=== PATIENT | female | born 1960 | race African-American/Black ===

== ENCOUNTER 2016-12-17 10:39 | Emergency (ER) | payer MEDICARE ==
[~2016-12-17] VITALS: Ht 154.9 cm; Wt 110.0 kg
[2016-12-17 10:40] VITALS: BP 147/92; PULSE 66; RESP 18; TEMP 98.6; O2SAT 97
[2016-12-17] MEDS ORDERED: LISI40TA PO (11:08)
[2016-12-17] MEDS ORDERED: AMLO10TA2 PO (11:08)
[2016-12-17] MEDS ORDERED: METO25TA3 PO (11:08)
--- NOTE | 2016-12-17 11:33 | PD ---
HPI Chief Complaint: Musculoskeletal Complaint Time Seen by Provider: 11:33 Travel History International Travel<30 days: No Contact w/Intl Traveler<30days: No Traveled to known affect area: No History of Present Illness HPI 56-year-old female presents to the emergency Department with complaint of right knee pain after hitting her knee on a door today. Denies paresthesias, loss of sensation to the affected extremity. Reports decreased range of motion. Has been ambulatory on the affected extremity. Took ibuprofen approximately 8 AM this morning for pain with some relief. Ice pack applied and the year. Has no other medical complaints. No known allergies. No other modifying factors or associated symptoms. PFSH Past Medical History Cardiovascular Problems: Yes (htn) ?: Not Past Surgical History Hysterectomy: Yes Social History Tobacco Use: No Allergies-Medications (Allergen,Severity, Reaction): Coded Allergies: No Known Allergies (Unverified , 12/17/16) Reported Meds & Prescriptions Reported Meds & Active Scripts Active Ibuprofen 800 Mg Tab 800 Mg PO Q6HR PRN Reported Metoprolol Tartrate 25 Mg Tab 25 Mg PO DAILY Amlodipine (Amlodipine Besylate) 10 Mg Tab 10 Mg PO DAILY Lisinopril 40 Mg Tab 40 Mg PO DAILY Review of Systems Except as stated in HPI: all other systems reviewed are Neg Physical Exam Narrative GENERAL: Well-nourished, well-developed female patient, in no acute distress SKIN: Warm and dry. HEAD: Atraumatic. Normocephalic. EYES: Pupils equal and round. No scleral icterus. No injection or drainage. ENT: Mucosa pink and moist. Airway patent. NECK: Trachea midline. CARDIOVASCULAR: Regular rate. RESPIRATORY: No accessory muscle use. GASTROINTESTINAL: Obese. MUSCULOSKELETAL: Right anterior knee is mildly edematous without erythema, ecchymosis; full range of motion with flexion and 90; joint stable with negative drawer test; tenderness on palpation to the anterior aspect over the patella; no obvious deformity. Right lower extremity supple and nontense with 2 + pedal pulses and sensory intact and without erythema or edema. NEUROLOGICAL: Awake and alert. Oriented 3. No obvious cranial nerve deficits. Motor grossly within normal limits. Normal speech. PSYCHIATRIC: Appropriate mood and affect; insight and judgment normal. Data Data Last Documented VS Vital Signs Date Time Temp Pulse Resp B/P Pulse Ox O2 Delivery O2 Flow Rate FiO2 5/10/17 10:40 98.6 66 18 147/92 97 Orders Knee, Complete (4vws) (12/17/16 11:33) Splint Or Brace Apply/Monitor (12/17/16 12:29) Crutches (12/17/16 12:29) MDM Medical Decision Making Medical Screen Exam Complete: Yes Emergency Medical Condition: Yes Medical Record Reviewed: Yes Differential Diagnosis Knee contusion, patellar fracture, less likely dislocation Narrative Course 56-year-old female with right knee injury. Patient took ibuprofen prior to arrival. Right knee x-ray ordered. 1228: Right knee x-ray concludes: Last 24 hours Impressions Knee X-Ray 12/17/16 1133 Signed Impressions: Service Date/Time: Saturday, December 17, 2016 11:54 - CONCLUSION: 1. Prominent probable osteochondroma extending off the superior aspect of the patella with a large cartilaginous cap. Malignant degeneration is often associated with the size of the cartilaginous cap. As such, MRI with and without contrast the useful for further characterization of this region. There does appear to be a well-corticated pseudoarticulation in the stalk of the osteochondroma 2. Small , 2.5 cm osteochondromata more medially and inferior in the anterior joint space. 3. 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 No associated fracture Rey Ribeiro MD X-ray findings were discussed with the patient and she was given a copy of the x -ray report and instructed to follow up outpatient for further imaging as suggested per report. Qamar bandage and crutches provided for support. Ibuprofen prescribed for home. Patient verbalizes understanding and agreement with treatment plan. Patient is medically cleared and stable for discharge. Discussed reasons to return to the emergency department. Instructed patient to follow up with primary care provider. Patient agrees with treatment plan. The patients vital signs are stable and the patient is stable for outpatient follow- up and treatment. Patient discharged home, stable and in no acute distress. Diagnosis Primary Impression: Contusion of right knee Qualified Code: S80.01XA - Contusion of right knee, initial encounter Referrals: Primary Care Physician Patient Instructions: Crutch Instructions (ED), General Instructions, Knee Pain (ED) Additional Instructions: Tylenol or ibuprofen as needed and as directed to reduce pain and inflammation Rest, ice, compress, and elevate extremity to decrease pain and inflammation Qamar bandage for compression and support Crutches for support Avoid aggravating activity; increase activity as tolerated Follow-up with primary care provider Return to the emergency department immediately with worsening symptoms Med/Other Pt SpecificInfo: Prescription(s) given Scripts Ibuprofen 800 Mg [id number] Mg PO Q6HR PRN (PAIN) #30 TAB Ref 0 Prov:Sharonda Robbins 12/17/16 Disposition: 01 DISCHARGE HOME Condition: Stable Sharonda Robbins December 17, 2016 11:33
--- NOTE | 2016-12-17 12:18 | RADRPT ---
EXAM DATE/TIME: 12/17/2016 11:54 [facility] COMPARISON: No previous studies available for comparison. INDICATIONS : Right medial knee pain after hitting it in a door way last night. MEDICAL HISTORY : None. SURGICAL HISTORY : None. ENCOUNTER: Initial ACUITY: 2 days PAIN SCORE: 8/10 LOCATION: Right medial knee. FINDINGS: Four view examination of the right knee demonstrates severe tricompartment osteoarthritic changes. T here is a prominent bony protuberance off the superior aspect of the patella that contains a well cor ticated lucency possibly representing a pseudoarticulation in a prominent osteochondroma. Popcorn typ e calcifications are seen in the most cephalad extent of this lesion and, due to size, this area shou ld probably be evaluated for neoplastic inversion. There is a smaller osteochondroma identified more medially. Large bony spurs and periarticular osseous fragmentation are associated with the severe ost eoarthritis. No acute fracture. CONCLUSION: 1. Prominent probable osteochondroma extending off the superior aspect of the patella with a large ca rtilaginous cap. Malignant degeneration is often associated with the size of the cartilaginous cap. A s such, MRI with and without contrast the useful for further characterization of this region. There d oes appear to be a well-corticated pseudoarticulation in the stalk of the osteochondroma 2. Small, 2.5 cm osteochondromata more medially and inferior in the anterior joint space. 3. 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 No associated fracture Rey Ribeiro MD on December 17, 2016 at 12:02 Board Certified Radiologist. This report was verified electronically.
[2016-12-17] MEDS ORDERED: IBUP800T23 PO (12:29)
== END 2016-12-17 13:31 | disposition home or self-care (01) ==
LOC: NEPK 10:39
DX: S80.01XA Contusion of right knee, initial encounter (principal); W22.8XXA Striking against or struck by other objects, initial encounter
CPT/HCPCS: 73564; 99283; E0113

== ENCOUNTER 2017-04-21 13:56 | Emergency (ER) | payer MEDICARE ==
[~2017-04-21] VITALS: Ht 152.4 cm; Wt 100.0 kg
[~2017-04-21 13:56] MED LIST: AMLO10TA2 PO; IBUP800T23 PO; LISI40TA PO; METO25TA3 PO
[2017-04-21 13:59] VITALS: BP 207/98; PULSE 98; RESP 16; TEMP 97.7; O2SAT 98
--- NOTE | 2017-04-21 14:21 | PD ---
HPI Chief Complaint: Bite or Sting Time Seen by Provider: 15:28 Travel History International Travel<30 days: No Contact w/Intl Traveler<30days: No Traveled to known affect area: No History of Present Illness HPI 56 year female with history of hypertension, who forgot to take her medication today, presents to emergency department for evaluation of an insect bite or sting to the left fourth digit. Patient states she felt something crawling on her finger so she went to grab it and at that time it bit or stung her. She states that her fingers beginning to swell and she is concerned about this. Denies a chest x-ray otitis. No difficulty breathing. No sensation of oral swelling or throat closing. Patient has no known allergies. She has no other symptoms to report. She has already taken Benadryl prior to arrival. History Social History Tobacco Use: No Allergies-Medications (Allergen,Severity, Reaction): Coded Allergies: No Known Allergies (Unverified , 12/17/16) Reported Meds & Prescriptions Reported Meds & Active Scripts Active Ibuprofen 800 Mg Tab 800 Mg PO Q6HR PRN Reported Metoprolol Tartrate 25 Mg Tab 25 Mg PO DAILY Amlodipine (Amlodipine Besylate) 10 Mg Tab 10 Mg PO DAILY Lisinopril 40 Mg Tab 40 Mg PO DAILY Review of Systems Except as stated in HPI: all other systems reviewed are Neg Physical Exam Narrative GENERAL: Well-nourished, well-developed female patient in no acute distress SKIN: Focused skin assessment warm/dry. Mild edema of the left fourth digit. Patient has flexion extension of the affected digit. Cap refill within normal limits. Sensation intact distal affected digit. HEAD: Normocephalic. EYES: No scleral icterus. No injection or drainage. ENT: Mucosa pink and moist. No erythema or exudates. No uvular edema. No uvular , palatal, or tonsillar deviation. Airway patent. Nasal turbinates appear normal without nasal blood, purulent drainage or septal hematoma. NECK: Supple, trachea midline. No JVD or lymphadenopathy. No stridor CARDIOVASCULAR: Regular rate and rhythm without murmurs, gallops, or rubs. RESPIRATORY: Breath sounds equal bilaterally. No accessory muscle use. Data Data Last Documented VS Vital Signs Date Time Temp Pulse Resp B/P (MAP) Pulse Ox O2 Delivery O2 Flow Rate FiO2 04/21/17 13:59 97.7 98 16 207/98 (134) 98 [facility] Medical Screen Exam Complete: Yes Emergency Medical Condition: No Differential Diagnosis insect bite/sting to L 4th digit Narrative Course 56 year-old female presents to emergency department for evaluation of an insect bite to the left fourth digit. Digit is mildly edematous without any limitations in range of motion. Sensation is intact distal affected digit. Patient took Benadryl just prior to arrival. I encouraged her to elevate, ice, and continue Benadryl as directed on package. At this time there are no urgent or emergent needs for medical intervention identified. A medical screening exam was performed: At the time of evaluation the presenting medical condition was determined not to be of an emergent nature. The patient was given the option of receiving additional care, but declined. Patient was given options for additional community resources from which to obtain care. The Patient Has Been advised to seek medical attention for their presenting complaint. The patient has been advised to return to the ER at any time if an emergent condition develops. Primary Impression: Encounter for medical screening examination Condition: Stable Dina Lux Apr 21, 2017 14:21
== END 2017-04-21 14:15 | disposition left against medical advice (07) ==
LOC: NETRI 13:56
DX: S60.465A Insect bite (nonvenomous) of left ring finger, initial encounter (principal); W57.XXXA Bitten or stung by nonvenomous insect and other nonvenomous arthropods, initial encounter
CPT/HCPCS: 99281